=== PATIENT | male | born 1960 | race Caucasian/White ===

== ENCOUNTER 2018-06-19 06:25 | Day surgery (SDC) | payer BC ==
[~2018-06-19] VITALS: Ht 170.2 cm; Wt 82.5 kg
[2018-06-19 08:11] VITALS: Ht 170.2 cm; Wt 82.5 kg
[2018-06-19] MEDS ORDERED: ALLO300T2 PO ×2 (08:19→08:21)
[2018-06-19] MEDS ORDERED: SIMV40TA3 PO (08:21)
[2018-06-19] MEDS ORDERED: benazepril PO (08:21)
[2018-06-19] MEDS ORDERED: FENO134C PO (08:21)
[2018-06-19 08:30] VITALS: BP 111/66; PULSE 68; RESP 16
[2018-06-19] MEDS ORDERED: LIDOCAINE 4% SOLUTION 50 ML BTL ONE (08:35)
[2018-06-19 09:44] VITALS: BP 114/84; PULSE 62; RESP 20
[2018-06-19] MEDS ORDERED: FENTAnyl 50 MCG/ML VIAL ONE (10:13)
[2018-06-19] MEDS ORDERED: MIDAZOLAM 1 MG/ML 2 ML INJ ONE ×2 (10:13)
== END 2018-06-19 11:51 | disposition home or self-care (01) ==
LOC: GIL 06:25
PROVIDERS: ATTEND Internal Medicine Gastroenterology
DX: Z12.11 Encounter for screening for malignant neoplasm of colon (principal); K29.50 Unspecified chronic gastritis without bleeding; D12.4 Benign neoplasm of descending colon; K64.4 Residual hemorrhoidal skin tags; K57.30 Diverticulosis of large intestine without perforation or abscess without bleeding; K25.3 Acute gastric ulcer without hemorrhage or perforation; K29.80 Duodenitis without bleeding; K20.8 Other esophagitis
CPT/HCPCS: 43239; 45380; 45385; 88305; 88312; J2250; J3010; Z7610